=== PATIENT | male | born 1955 | race Caucasian/White ===

== ENCOUNTER 2024-06-29 09:13 | Outpatient (CLI) | payer MEDICARE | END 2024-06-29 09:14 | disposition home or self-care (01) | LOC: CSHMRI 09:13 | PROVIDERS: ATTEND Orthopaedic Surgery | DX: M23.91 Unspecified internal derangement of right knee (principal); M79.604 Pain in right leg; M25.461 Effusion, right knee; M67.961 Unspecified disorder of synovium and tendon, right lower leg; S83.231A Complex tear of medial meniscus, current injury, right knee, initial encounter | CPT/HCPCS: 36415; 82565 ==